=== PATIENT | male | born 1945 | race Hispanic/Latino ===

== ENCOUNTER → 2019-08-03 | Outpatient (CLI) | payer OTHER | END | disposition home or self-care (01) | LOC: RAH 12:23 | PROVIDERS: ATTEND Family Medicine | DX: Z13.6 Encounter for screening for cardiovascular disorders (principal) | CPT/HCPCS: 75571 ==

== ENCOUNTER → 2020-05-03 | Outpatient (CLI) | payer OTHER | END | disposition home or self-care (01) | LOC: SHCH 13:22 | PROVIDERS: ATTEND Internal Medicine Cardiovascular Disease | DX: I65.23 Occlusion and stenosis of bilateral carotid arteries (principal); I25.10 Atherosclerotic heart disease of native coronary artery without angina pectoris | CPT/HCPCS: 93880 ==